=== PATIENT | female | born 1945 | race Caucasian/White ===

== ENCOUNTER 2017-09-07 10:00 | Outpatient (CLI) | payer MEDICARE | END 2017-09-07 10:01 | disposition home or self-care (01) | LOC: BICRAD 10:00 | PROVIDERS: ATTEND Family Medicine | DX: M79.671 Pain in right foot (principal) ==

== ENCOUNTER 2018-12-28 10:30 | Outpatient (CLI) | payer MEDICARE ==
--- NOTE | 2018-12-28 11:34 | MMO ---
Bilateral MAMMO Bilat Screen [facility]. CLINICAL HISTORY: Patient is 73 years old and is seen for screening. The patient has the following family history of breast cancer: sister. The patient has a history of Skin cancer at age 44. VIEWS: The views performed were: bilateral craniocaudal with tomosynthesis and bilateral mediolateral oblique with tomosynthesis. FILMS COMPARED: The present examination has been compared to prior imaging studies performed at [facility] on 07/12/2013, 07/20/2014, 07/29/2015 and 08/06/2016. MAMMOGRAM FINDINGS: The breasts are almost entirely fat. Benign calcifications are noted bilaterally. There are no suspicious masses, suspicious calcifications, or new areas of architectural distortion. IMPRESSION: THERE IS NO MAMMOGRAPHIC EVIDENCE OF MALIGNANCY. A ROUTINE FOLLOW-UP MAMMOGRAM IN 1 YEAR IS RECOMMENDED. THE RESULTS OF THIS EXAM WERE SENT TO THE PATIENT. ACR BI-RADS Category 2 - Benign finding MAMMOGRAPHY NOTE: 1. A negative mammogram report should not delay a biopsy if a dominant of clinically suspicious mass is present. 2. Approximately 10% to 15% of breast cancers are not detected by mammography. 3. Adenosis and dense breasts may obscure an underlying neoplasm. Reported by: MARSHALL HUBBARD MD Electonically Signed: [id number]
== END 2018-12-28 10:31 | disposition home or self-care (01) ==
LOC: BICMAMMO 10:30
PROVIDERS: ATTEND Family Medicine
DX: Z12.31 Encounter for screening mammogram for malignant neoplasm of breast (principal); Z85.820 Personal history of malignant melanoma of skin; Z80.3 Family history of malignant neoplasm of breast
CPT/HCPCS: 77063; 77067

== ENCOUNTER 2021-02-14 13:53 | Outpatient (CLI) | payer MEDICARE | END 2021-02-14 13:54 | disposition home or self-care (01) | LOC: BICMAMMO 13:53 | PROVIDERS: ATTEND Family Medicine | DX: Z12.31 Encounter for screening mammogram for malignant neoplasm of breast (principal); Z13.820 Encounter for screening for osteoporosis; Z80.3 Family history of malignant neoplasm of breast; Z85.828 Personal history of other malignant neoplasm of skin | CPT/HCPCS: 77063; 77067; 77080 ==

== ENCOUNTER 2021-07-29 12:01 | Outpatient (CLI) | payer MEDICARE ==
[2021-07-29 13:46] LABS: Estimated GFR-MDRD - POC Greater than 90
== END 2021-07-29 12:02 | disposition home or self-care (01) ==
LOC: SCSMRI 12:01
PROVIDERS: ATTEND Family Medicine
DX: M79.605 Pain in left leg (principal); M47.816 Spondylosis without myelopathy or radiculopathy, lumbar region; M47.817 Spondylosis without myelopathy or radiculopathy, lumbosacral region; M47.815 Spondylosis without myelopathy or radiculopathy, thoracolumbar region; Z98.890 Other specified postprocedural states
CPT/HCPCS: 72158; 82565

== ENCOUNTER 2021-09-12 12:07 | Outpatient (CLI) | payer MEDICARE | END 2021-09-12 12:08 | disposition home or self-care (01) | LOC: BICCT 12:07 | PROVIDERS: ATTEND Surgery | DX: M48.062 Spinal stenosis, lumbar region with neurogenic claudication (principal); M47.816 Spondylosis without myelopathy or radiculopathy, lumbar region | CPT/HCPCS: 72110; 72131 ==

== ENCOUNTER 2021-10-09 09:51 | Outpatient (CLI) | payer MEDICARE | END 2021-10-09 09:52 | disposition home or self-care (01) | LOC: BICCT 09:51 | PROVIDERS: ATTEND Urology | DX: N28.1 Cyst of kidney, acquired (principal); K86.2 Cyst of pancreas; N20.0 Calculus of kidney; N28.89 Other specified disorders of kidney and ureter; N83.201 Unspecified ovarian cyst, right side; M47.816 Spondylosis without myelopathy or radiculopathy, lumbar region; M43.16 Spondylolisthesis, lumbar region; N83.8 Other noninflammatory disorders of ovary, fallopian tube and broad ligament | CPT/HCPCS: 74178; 82565 ==

== ENCOUNTER 2022-06-10 09:45 | Outpatient (CLI) | payer MEDICARE | END 2022-06-10 09:46 | disposition home or self-care (01) | LOC: BICMAMMO 09:45 | PROVIDERS: ATTEND Family Medicine | DX: Z12.31 Encounter for screening mammogram for malignant neoplasm of breast (principal); R92.1 Mammographic calcification found on diagnostic imaging of breast; Z80.3 Family history of malignant neoplasm of breast; Z85.828 Personal history of other malignant neoplasm of skin | CPT/HCPCS: 77063; 77067 ==

== ENCOUNTER 2022-12-18 13:38 | Outpatient (CLI) | payer MEDICARE ==
[~2022-12-18 13:38] MED LIST: Iopamidol 370 76% 100 ML VIAL ONE
== END 2022-12-18 13:39 | disposition home or self-care (01) ==
LOC: BICCT 13:38
PROVIDERS: ATTEND Internal Medicine
DX: C25.9 Malignant neoplasm of pancreas, unspecified (principal); R59.0 Localized enlarged lymph nodes; K76.9 Liver disease, unspecified
CPT/HCPCS: 71260; 74178; 82565

== ENCOUNTER 2023-04-08 09:01 | Outpatient (CLI) | payer MEDICARE | END 2023-04-08 09:02 | disposition home or self-care (01) | LOC: BICCT 09:01 | PROVIDERS: ATTEND Internal Medicine Hematology & Oncology | DX: C25.1 Malignant neoplasm of body of pancreas (principal); C78.7 Secondary malignant neoplasm of liver and intrahepatic bile duct | CPT/HCPCS: 71260; 74177 ==

== ENCOUNTER 2023-08-04 08:50 | Outpatient (CLI) | payer MEDICARE | END 2023-08-04 08:51 | disposition home or self-care (01) | LOC: BICCT 08:50 | PROVIDERS: ATTEND Internal Medicine Hematology & Oncology | DX: C25.1 Malignant neoplasm of body of pancreas (principal); C78.7 Secondary malignant neoplasm of liver and intrahepatic bile duct | CPT/HCPCS: 71260; 74177; 80053; 86301 ==

== ENCOUNTER 2024-02-24 08:56 | Outpatient (CLI) | payer MEDICARE | END 2024-02-24 08:57 | disposition home or self-care (01) | LOC: CT 08:56 | PROVIDERS: ATTEND Internal Medicine Hematology & Oncology | DX: C25.1 Malignant neoplasm of body of pancreas (principal); C78.7 Secondary malignant neoplasm of liver and intrahepatic bile duct; R97.8 Other abnormal tumor markers | CPT/HCPCS: 71260; 74177; J1642 ==

== ENCOUNTER 2024-05-26 09:02 | Outpatient (CLI) | payer MEDICARE ==
[2024-05-26] MEDS ORDERED: Iopamidol 370 76% 100 ML VIAL ONE (10:48)
== END 2024-05-26 09:03 | disposition home or self-care (01) ==
LOC: CT 09:02
PROVIDERS: ATTEND Internal Medicine Hematology & Oncology
DX: C25.1 Malignant neoplasm of body of pancreas (principal); C78.7 Secondary malignant neoplasm of liver and intrahepatic bile duct
CPT/HCPCS: 71260; 74177; J1642; Q9967

== ENCOUNTER 2024-12-06 08:05 | Outpatient (CLI) | payer MEDICARE ==
[2024-12-06] MEDS ORDERED: Iopamidol 370 76% 100 ML VIAL ONE (12:40)
== END 2024-12-06 08:06 | disposition home or self-care (01) ==
LOC: CT 08:05
PROVIDERS: ATTEND Internal Medicine Hematology & Oncology
DX: C25.1 Malignant neoplasm of body of pancreas (principal); C78.7 Secondary malignant neoplasm of liver and intrahepatic bile duct; K76.9 Liver disease, unspecified; E27.8 Other specified disorders of adrenal gland; R91.8 Other nonspecific abnormal finding of lung field; I89.8 Other specified noninfective disorders of lymphatic vessels and lymph nodes; I70.0 Atherosclerosis of aorta; K86.89 Other specified diseases of pancreas; N20.0 Calculus of kidney; M47.819 Spondylosis without myelopathy or radiculopathy, site unspecified; M43.16 Spondylolisthesis, lumbar region; Z90.710 Acquired absence of both cervix and uterus
CPT/HCPCS: 71260; 74177; J1642; Q9967

== ENCOUNTER 2025-02-06 08:27 | Outpatient (CLI) | payer MEDICARE ==
[2025-02-06] MEDS ORDERED: Iopamidol 370 76% 100 ML VIAL ONE (11:34)
== END 2025-02-06 08:28 | disposition home or self-care (01) ==
LOC: CT 08:27
PROVIDERS: ATTEND Internal Medicine Hematology & Oncology
DX: C25.1 Malignant neoplasm of body of pancreas (principal); C78.7 Secondary malignant neoplasm of liver and intrahepatic bile duct
CPT/HCPCS: 71260; 74177; J1642; Q9967

== ENCOUNTER 2025-02-21 14:24 | Inpatient (IN) | payer MEDICARE ==
[2025-02-21 17:04] LABS: #Basophils 0.03 10x3/uL (0.0-0.2); #Eosinophils Less than 0.03 10x3/uL (0.0-0.7); #Monocytes 0.98 10x3/uL (0.11-0.59); #Neutrophils 14.75 10x3/uL (1.40-6.50); %Basophils 0.2 % (0.0-1.0); %Eosinophils 0.0 % (0.0-10.0); %Lymphocytes 5.5 % (21.0-51.0); %Monocytes 5.8 % (0.0-10.0); %Neutrophils 87.5 % (42.0-75.0); Hematocrit 35.0 % (36.0-47.0); Hemoglobin 11.0 g/dL (12.0-16.0); Mean Corpuscular Hemoglobin 32.0 pg (27.0-31.0); Mean Corpuscular Volume 101.7 fL (78.0-98.0); Platelet Count 70 10x3/uL (130-400); Red Blood Cell (RBC) Count 3.44 mill/uL (4.20-5.40); White Blood Cell (WBC) Count 16.86 10x3/uL (4.8-10.8)
[2025-02-21 17:08] LABS: INR-International Normal Ratio 1.1; PTT 31.1 sec (22.9-36.1); Prothrombin Time 14.4 sec (12.0-14.7)
[2025-02-21 17:15] LABS: ALT (SGPT) 31 U/L (Less than 34); AST (SGOT) 50 U/L (11-34); Albumin 3.4 g/dL (3.1-4.5); Alkaline Phosphatase 165 U/L (40-110); Anion Gap 14 mmol/L (10-20); BUN (Urea Nitrogen) 20 mg/dL (9.8-20.1); Bilirubin, Total 0.8 mg/dL (0.3-1.2); Calc. Creatinine Clearance 0 mL/min (70-130); Calcium 8.4 mg/dL (7.8-10.44); Carbon Dioxide 24 mmol/L (23-31); Chloride 104 mmol/L (98-107); Globulin 2.6 g/dL (2.4-3.5); Glucose 150 mg/dL (83-110); Potassium 3.6 mmol/L (3.5-5.1); Sodium 138 mmol/L (136-145)
[2025-02-21 17:21] LABS: Anisocytosis SLIGHT = 6-15 cells HPF (0-5); Macrocytosis MODERATE=16-30 cells HPF (0-5); Ovalocytes SLIGHT = 2-5 cells HPF (0-1); Platelet Adequacy Comment Platelets Decreased; Polychromasia SLIGHT = 2-3 cells HPF (0-2)
[2025-02-21] MEDS ORDERED: cefTRIAXone (ROCEPHIN) 2 GM VIAL ONE (19:12)
[2025-02-21] MEDS ORDERED: Ondansetron PF 4 MG/2 ML Vial IVP PRN (19:30)
[2025-02-21] MEDS ORDERED: Acetaminophen 325 MG TAB PO PRN (19:30)
[2025-02-21] MEDS: Ibuprofen 200 MG TAB PO SCH (21:38)
[2025-02-21 21:47] VITALS: BMI 22.8
[2025-02-22 05:52] LABS: Anion Gap 12 mmol/L (10-20); BUN (Urea Nitrogen) 18 mg/dL (9.8-20.1); Calc. Creatinine Clearance 67 mL/min (70-130); Calcium 8.1 mg/dL (7.8-10.44); Carbon Dioxide 23 mmol/L (23-31); Chloride 104 mmol/L (98-107); Glucose 124 mg/dL (83-110); Potassium 3.1 mmol/L (3.5-5.1); Sodium 136 mmol/L (136-145)
[2025-02-22 06:02] LABS: #Basophils Less than 0.03 10x3/uL (0.0-0.2); #Eosinophils Less than 0.03 10x3/uL (0.0-0.7); #Monocytes 1.04 10x3/uL (0.11-0.59); #Neutrophils 10.51 10x3/uL (1.40-6.50); %Basophils 0.1 % (0.0-1.0); %Eosinophils 0.0 % (0.0-10.0); %Lymphocytes 13.5 % (21.0-51.0); %Monocytes 7.7 % (0.0-10.0); %Neutrophils 78.1 % (42.0-75.0); Hematocrit 31.6 % (36.0-47.0); Hemoglobin 10.4 g/dL (12.0-16.0); Mean Corpuscular Hemoglobin 32.9 pg (27.0-31.0); Mean Corpuscular Volume 100.0 fL (78.0-98.0); Platelet Count 63 10x3/uL (130-400); Red Blood Cell (RBC) Count 3.16 mill/uL (4.20-5.40); White Blood Cell (WBC) Count 13.47 10x3/uL (4.8-10.8)
[2025-02-22] MEDS: cefTRIAXone\\ROCEPHIN 2 GM in Sodium Chloride 0.9% 100 ML IVPB SCH (17:24)
[2025-02-22] MEDS: Mupirocin 1 GM TUBE NASAL DECOLONIZATION NASAL SCH (20:58)
[2025-02-23 06:39] LABS: #Basophils Less than 0.03 10x3/uL (0.0-0.2); #Eosinophils 0.07 10x3/uL (0.0-0.7); #Monocytes 0.43 10x3/uL (0.11-0.59); #Neutrophils 3.64 10x3/uL (1.40-6.50); %Basophils 0.4 % (0.0-1.0); %Eosinophils 1.4 % (0.0-10.0); %Lymphocytes 16.1 % (21.0-51.0); %Monocytes 8.7 % (0.0-10.0); %Neutrophils 73.2 % (42.0-75.0); Hematocrit 32.5 % (36.0-47.0); Hemoglobin 10.2 g/dL (12.0-16.0); Mean Corpuscular Hemoglobin 32.4 pg (27.0-31.0); Mean Corpuscular Volume 103.2 fL (78.0-98.0); Platelet Count 49 10x3/uL (130-400); Red Blood Cell (RBC) Count 3.15 mill/uL (4.20-5.40); White Blood Cell (WBC) Count 4.97 10x3/uL (4.8-10.8)
[2025-02-23 06:42] LABS: Anion Gap 12 mmol/L (10-20); BUN (Urea Nitrogen) 13 mg/dL (9.8-20.1); CK (CPK) 70 U/L (29-168); Calc. Creatinine Clearance 80 mL/min (70-130); Calcium 8.3 mg/dL (7.8-10.44); Carbon Dioxide 23 mmol/L (23-31); Chloride 111 mmol/L (98-107); Glucose 110 mg/dL (83-110); Potassium 3.7 mmol/L (3.5-5.1); Sodium 142 mmol/L (136-145)
[2025-02-23] MEDS: Bisacodyl 10 MG SUPP PR PRN (14:41)
[2025-02-24 07:02] LABS: #Basophils Less than 0.03 10x3/uL (0.0-0.2); #Eosinophils 0.19 10x3/uL (0.0-0.7); #Monocytes 0.34 10x3/uL (0.11-0.59); #Neutrophils 2.28 10x3/uL (1.40-6.50); %Basophils 0.5 % (0.0-1.0); %Eosinophils 4.8 % (0.0-10.0); %Lymphocytes 28.2 % (21.0-51.0); %Monocytes 8.6 % (0.0-10.0); %Neutrophils 57.4 % (42.0-75.0); Hematocrit 31.4 % (36.0-47.0); Hemoglobin 10.0 g/dL (12.0-16.0); Mean Corpuscular Hemoglobin 32.3 pg (27.0-31.0); Mean Corpuscular Volume 101.3 fL (78.0-98.0); Platelet Count 60 10x3/uL (130-400); Red Blood Cell (RBC) Count 3.10 mill/uL (4.20-5.40); White Blood Cell (WBC) Count 3.97 10x3/uL (4.8-10.8)
[2025-02-24 07:06] LABS: Anion Gap 9 mmol/L (10-20); BUN (Urea Nitrogen) 13 mg/dL (9.8-20.1); CK (CPK) 37 U/L (29-168); Calc. Creatinine Clearance 81 mL/min (70-130); Calcium 8.1 mg/dL (7.8-10.44); Carbon Dioxide 23 mmol/L (23-31); Chloride 110 mmol/L (98-107); Glucose 123 mg/dL (83-110); Potassium 3.7 mmol/L (3.5-5.1); Sodium 138 mmol/L (136-145)
[2025-02-24] MEDS: Losartan 25 MG TAB PO SCH (10:12)
[2025-02-24] MEDS: Carvedilol 3.125 MG TAB PO SCH (10:13)
[2025-02-24] MEDS: cefTRIAXone\\ROCEPHIN 2 GM in Sodium Chloride 0.9% 100 ML IVPB SCH (14:19)
[2025-02-24 15:22] VITALS: BP 127/71; TEMP 97.9
== END 2025-02-24 17:00 | disposition home or self-care (01) | DRG 603 ==
LOC: ERS 14:24 → T4-A 18:54
PROVIDERS: ADMIT Internal Medicine; ATTEND Hospitalist
DX: L03.115 Cellulitis of right lower limb (principal); C25.9 Malignant neoplasm of pancreas, unspecified; C78.7 Secondary malignant neoplasm of liver and intrahepatic bile duct; I10 Essential (primary) hypertension; E03.9 Hypothyroidism, unspecified; Z98.890 Other specified postprocedural states; Z92.21 Personal history of antineoplastic chemotherapy; Z79.899 Other long term (current) drug therapy
CPT/HCPCS: 36415; 36416; 80048; 80053; 82550; 83605; 84145; 84484; 85025; 85610; 85730; 86141; 87040; 93005; 96365; J0696; J1642